=== PATIENT | female | born 1935 | race Caucasian/White ===

== ENCOUNTER 2016-12-01 01:57 | Inpatient (IN) | payer MEDICARE ==
[2016-12-01 02:39] LABS: ABSOLUTE BASOPHILS # (AUTO) 0.1 10^3/uL (0.0-0.2); ABSOLUTE EOSINOPHILS # (AUTO) 0.1 10^3/uL (0.0-0.6); ABSOLUTE LYMPHOCYTES (AUTO) 1.9 10^3/uL (0.5-4.7); ABSOLUTE MONOCYTES (AUTO) 1.1 10^3/uL (0.1-1.4); ABSOLUTE NEUT (AUTO) 9.1 10^3/uL (1.7-8.2); BASOPHILS % (AUTO) 0.4 % (0-2); EOSINOPHILS % (AUTO) 0.6 % (0-6); HEMATOCRIT 39.6 % (36.0-47.0); HEMOGLOBIN 12.9 g/dL (12.0-15.5); HGB HCT DIFFERENCE -0.9; LYMPHOCYTES % (AUTO) 15.5 % (13-45); MEAN CORPUSCULAR HGB CONC 32.5 g/dL (32.0-36.0); MEAN CORPUSCULAR VOLUME 83 fl (80-97); MONOCYTES % (AUTO) 9.1 % (3-13); RED BLOOD COUNT 4.76 10^6/uL (3.72-5.28); RED CELL DISTRIBUTION WIDTH 17.7 % (11.5-14.0); SEGMENTED NEUTROPHILS % (AUTO) 74.4 % (42-78); WHITE BLOOD COUNT 12.2 10^3/uL (4.0-10.5)
--- NOTE | 2016-12-01 02:57 | ER Document Report ---
ED General <LITO THOMAS - Last Filed: 12/01/16 07:33> - General TRAVEL OUTSIDE OF THE [place] IN LAST 30 DAYS: No <ELIAS FRANK - Last Filed: 12/02/16 02:14> - General Chief Complaint: Near Syncope Stated Complaint: DIZZY Notes: Patient is a 81-year-old female presents with complaint of slipping out of her chair and being poorly responsive. She was 87% on room air. They placed her on oxygen . After they placed oxygen on her she became more appropriate and no longer confused. She said she has felt a little unwell today. No vomiting. No pain. No other complaints this time. No focal weakness or numbness. She typically does not wear oxygen at home. She typically is not hypotensive. She denies any recent fevers. (ELIAS FRANK) - Related Data Allergies/Adverse Reactions: No Known Allergies Allergy (Verified 02/02/15 03:40) Home Medications: Current Home Medications Amitriptyline HCl [Elavil 25 mg Tablet] 25 mg PO BID 12/01/16 [History] Ammonium Lactate [Skin Treatment] 1 applic TP BID 12/01/16 [History] Aspirin [Aspirin 81 mg Chewable Tablet] 81 mg PO DAILY 12/01/16 [History] Furosemide [Lasix] 20 mg PO DAILY 12/01/16 [History] Glimepiride [Amaryl] 2 mg PO QAM 12/01/16 [History] Iron,Carbonyl/Ascorbic Acid [Vitron-C Tablet] 1 tab PO DAILY 12/01/16 [History] Liraglutide [Victoza 2-Kevin] 1.8 ml INJ DAILY 12/01/16 [History] Morphine Sulfate [Morphine Ir 15 Mg Tablet] 15 mg PO BIDP PRN 12/01/16 [History] Multivitamin [Multivitamins] 1 each PO DAILY 12/01/16 [History] Pantoprazole Sodium [Protonix] 40 mg PO DAILY 12/01/16 [History] Pentosan Polysulfate Sodium [Elmiron 100 Mg Capsule] 100 mg PO BID 12/01/16 [ History] Rosuvastatin Calcium [Crestor] 40 mg PO DAILY 12/01/16 [History] Ubidecarenone/Vit E Acetate [Co Q-10 100 mg Softgel] 1 each PO DAILY 12/01/16 [ History] Past Medical History - Social History Smoking Status: Unknown if Ever Smoked Frequency of alcohol use: None Drug Abuse: None Family History: Reviewed & Not Pertinent, Hypertension - Past Medical History Cardiac Medical History: Reports: Hx Hypercholesterolemia, Hx Hypertension Denies: Hx Congestive Heart Failure, Hx Coronary Artery Disease Pulmonary Medical History: Denies: Hx Tuberculosis Endocrine Medical History: Reports: Hx Diabetes Mellitus Type 2 GI Medical History: Reports: Hx Diverticulitis, Hx Gastroesophageal Reflux Disease, Hx Ulcer Musculoskeltal Medical History: Reports Hx Muscle Weakness Psychiatric Medical History: Reports: Hx Depression Past Surgical History: Reports: Hx Appendectomy, Hx Carotid Endarterectomy, Hx Cholecystectomy, Hx Hysterectomy, Hx Tonsillectomy - Immunizations Hx Diphtheria, Pertussis, Tetanus Vaccination: Yes Hx Pneumococcal Vaccination: 06/27/14 <ELIAS FRANK - Last Filed: 12/02/16 02:14> Review of Systems <LITO THOMAS - Last Filed: 12/01/16 07:33> <ELIAS FRANK - Last Filed: 12/02/16 02:14> - Review of Systems Notes: My Normal Review Basic REVIEW OF SYSTEMS: CONSTITUTIONAL : Denies fever, chills, or sweats. Denies recent illness. EENT: Denies eye, ear, throat, or mouth pain or symptoms. Denies nasal or sinus congestion. CARDIOVASCULAR: Denies chest pain. RESPIRATORY: No shortness of breath or difficulty breathing. GASTROINTESTINAL: Denies abdominal pain. Denies nausea, vomiting, or diarrhea. Denies constipation. Last BM: GENITOURINARY: Denies difficulty urinating, painful urination, burning, frequency, or blood in urine. FEMALE GENITOURINARY: Denies vaginal bleeding, abnormal or irregular periods. LMP: MUSCULOSKELETAL: Denies neck or back pain or joint pain or swelling. SKIN: Denies rash or skin lesions. NEUROLOGICAL: Syncope. Denies headache. Denies weakness or paralysis or loss of use of either side. Denies problems with gait or speech. Denies sensory or motor loss. ALL OTHER SYSTEMS REVIEWED AND NEGATIVE. (ELIAS FRANK) Physical Exam <LITO THOMAS - Last Filed: 12/01/16 07:33> <ELIAS FRANK - Last Filed: 12/02/16 02:14> - Vital signs Vitals: Resp Pulse Ox 18 96 12/01/16 02:06 12/01/16 02:06 (LITO THOMAS) (ELIAS FRANK) - Notes Notes: General Appearance: Well nourished, alert, cooperative, no acute distress, no obvious discomfort. Well-appearing. Vitals: reviewed, See vital signs table. Head: no swelling or tenderness to the head Eyes: PERRL, EOMI, Conjuctiva clear Mouth: No decreasd moisture Throat: No tonsillar inflammation, No airway obstruction, No lymphadenopathy Neck: Supple, no neck tenderness, No thyromegaly Lungs: No wheezing, No rales, No rhonci, No accessory muscle use, good air exchange bilaterally. Heart: Normal rate, Regular rythm, No murmur, no rub Abdomen: Normal BS, soft, No rigidity, No abdominal tenderness, No guarding, no rebound, no abdominal masses, no organomegaly Extremities: strength 5/5 in all extremities, good pulses in all extremities, no swelling or tenderness in the extremities, no edema. Skin: warm, dry, appropriate color, no rash Neuro: speech clear, oriented x 3, normal affect, responds appropriately to questions. Cranial nerves II through XII are intact. Distal sensation intact. Patient moves all extremities without difficulty. (ELIAS FRANK) Course - Laboratory Result Diagrams: 12/01/16 02:26 12/01/16 02:50 <LITO THOMAS - Last Filed: 12/01/16 07:33> - Laboratory Result Diagrams: 12/01/16 02:26 12/01/16 02:50 <ELIAS FRANK - Last Filed: 12/02/16 02:14> - Vital Signs Vital signs: Temp Pulse Resp BP Pulse Ox 97.9 F 114 H 17 91/73 L 97 12/01/16 17:00 12/01/16 02:37 12/02/16 01:01 12/02/16 01:01 12/02/16 01:01 (LITO THOMAS) (ELIAS FRANK) - Laboratory Laboratory results interpreted by me: 12/01/16 12/01/16 12/01/16 02:26 02:50 02:50 WBC 12.2 H RDW 17.7 H Absolute Neutrophils 9.1 H Sodium 136.0 L Potassium 3.2 L Chloride 95 L Carbon Dioxide 32 H BUN 22 H Creatinine 1.42 H Est GFR ( Amer) 43 L Est GFR (Non-Af Amer) 36 L Glucose 126 H AST 193 H ALT 122 H Creatine Kinase 7026 H CK-MB (CK-2) 55.20 H Albumin 3.2 L Urine Protein Urine Glucose (UA) Urine Blood Ur Leukocyte Esterase 12/01/16 03:33 WBC RDW Absolute Neutrophils Sodium Potassium Chloride Carbon Dioxide BUN Creatinine Est GFR ( Amer) Est GFR (Non-Af Amer) Glucose AST ALT Creatine Kinase CK-MB (CK-2) Albumin Urine Protein 100 H Urine Glucose (UA) 50 H Urine Blood LARGE H Ur Leukocyte Esterase MODERATE H (LITO THOMAS) - EKG Interpretation by Me Additional EKG results interpreted by me: 12/01/16 02:56 EKG is reviewed and interpreted by me. EKG shows sinus tachycardia with a rate of [address] segment elevation or depression. No ischemic T wave inversions. WV interval, QRS duration, QTC intervals are within normal range. Old EKG for comparison is from 02/02/2015. (ELIAS FRANK) - Transfer of Care Notes: 12/02/16 02:13 Patient came in hypotensive which I think is most likely why she continued to pass out. It could be related to her pain medicine; however, she says that she takes her normal amount pain medicine. No recent changes in the dosage. She does have your tract infection. We'll treat her for this. Even though she is hypotensive her mean arterial pressure was staying above 65 after fluid boluses. I do not think she needs pressors. Patient will be admitted for further treatment. Dictation of this chart was performed using voice recognition software; therefore, there may be some unintended grammatical errors. (ELIAS FRANK) Discharge - Discharge Admitting Provider: Hospitalist Unit Admitted: Telemetry <LITO THOMAS - Last Filed: 12/01/16 07:33> <ELIAS FRANK - Last Filed: 12/02/16 02:14> - Discharge Clinical Impression: Hypotension Qualifiers: Hypotension type: unspecified hypotension type Qualified Code(s): I95.9 - Hypotension, unspecified UTI (urinary tract infection) Qualifiers: Urinary tract infection type: acute cystitis Hematuria presence: without hematuria Qualified Code(s): N30.00 - Acute cystitis without hematuria Condition: Stable Disposition: ADMITTED OBSERVATION
[2016-12-01] MEDS ORDERED: NORMAL SALINE 1000 ML 1,000 ML IV ONE ×2 (03:04→04:02)
[2016-12-01 03:16] LABS: ALANINE AMINOTRANSFERASE 122 U/L (9-52); ALBUMIN 3.2 g/dL (3.5-5.0); ALKALINE PHOSPHATASE 87 U/L (38-126); ANION GAP 9 (5-19); ASPARTATE AMINO TRANSFERASE 193 U/L (14-36); BILIRUBIN,TOTAL 0.7 mg/dL (0.2-1.3); BLOOD UREA NITROGEN 22 mg/dL (7-20); CARBON DIOXIDE 32 mmol/L (22-30); CHLORIDE 95 mmol/L (98-107); CREATININE RESULT 1.42 mg/dL (0.52-1.25); GLUCOSE 126 mg/dL (75-110); POTASSIUM 3.2 mmol/L (3.6-5.0); TOTAL PROTEIN 6.7 g/dL (6.3-8.2)
[2016-12-01 03:28] LABS: CREATINE KINASE MB 55.2 ng/mL (<4.55); TROPONIN I 0.015 ng/mL
[2016-12-01 03:32] LABS: CREATINE KINASE 7026 U/L (30-135)
[2016-12-01 04:17] LABS: APPEARANCE,URINE SLIGHTLY-CLOUDY; BILIRUBIN,URINE NEGATIVE (NEGATIVE); GLUCOSE, URINE 50 mg/dL (NEGATIVE); KETONES,URINE NEGATIVE (NEGATIVE); LEUKOCYTE ESTERASE,URINE MODERATE (NEGATIVE); NITRITE,URINE NEGATIVE (NEGATIVE); PROTEIN,URINE 100 mg/dL (NEGATIVE); URINE SPECIFIC GRAVITY 1.008; UROBILINOGEN,URINE NEGATIVE mg/dL (<2.0)
[2016-12-01] MEDS ORDERED: CIPROFLOXACIN 400 MG/D5W RTU 200 ML IV ONE (04:28)
[2016-12-01] MEDS ORDERED: MORPHINE SULFATE IR 15 MG TABLET PO PRN (08:17)
[2016-12-01] MEDS ORDERED: ACETAMINOPHEN 325 MG TABLET PO PRN (08:20)
[2016-12-01] MEDS ORDERED: NORMAL SALINE 1000 ML 1,000 ML IV PRN (08:20)
[2016-12-01] MEDS ORDERED: ONDANSETRON HCL INJ/PF 4 MG/2 ML SDV IV PRN (08:28)
[2016-12-01] MEDS ORDERED: AZTREONAM INJ 1 GM VIAL IV SCH (08:30)
--- NOTE | 2016-12-01 08:30 | EKG REPORT ---
SEVERITY:- ABNORMAL ECG - SINUS TACHYCARDIA WITH FIRST DEGREE AVB. INFERIOR INFARCT, AGE INDETERMINATE : Confirmed by: Nelson Bullock MD 01-Dec-2016 08:29:57
[2016-12-01] MEDS ORDERED: DEXTROSE 50%-WATER 25 GM/50 ML DISP.SYRIN IV PRN ×2 (08:31)
[2016-12-01] MEDS ORDERED: GLUCAGON,HUMAN RECOMB 1 MG INJ IM PRN (08:31)
[2016-12-01] MEDS ORDERED: DEXTROSE 40% GEL 15 GM TUBE PO PRN ×2 (08:31)
--- NOTE | 2016-12-01 08:45 | PDOC H&P ---
History of Present Illness Admission Date/PCP: 12/01/16 08:03 Patient complains of: Confusion and low blood pressure History of Present Illness: NEENA SANTANA is a 81 year old female, with history of hypertension and chronic back pain on chronic opiate use, as well as on diuretics presents to the hospital because of confusion. Patient does not remember what happened. She reported that she fell twice 2 days ago. She doesn't feel well overall in general. She has underlying baseline dementia and a very poor historian. She was brought to the hospital as she was falling out of the chair, the ambulance was called, she was found to be hypoxic with O2 saturation in the 80s, patient was placed on oxygen and was brought to the emergency room. CT of the abdomen and pelvis did not reveal any acute abnormality but large hiatal hernia. CTA of the chest did not reveal an infiltrate or pulmonary embolism. She was noted to be hypotensive with a blood pressure systolic in the 60s to 80s. 2 L of normal saline bolus was given and intravenous antibiotics started for abnormal urinalysis suggestive of UTI. Patient was then referred for admission. Patient denies any dysuria urgency or frequency, chills or fever, chest congestion or sinus congestion, nor any sore throat, no diarrhea as well reported. Past Medical History Past Medical History: Medication reconciliation pending verification from the patient's pharmacist. Cardiac Medical History: Reports: Hyperlipidema, Hypertension Denies: Congestive Heart Failure, Coronary Artery Disease Pulmonary Medical History: Denies: Tuberculosis Endocrine Medical History: Reports: Diabetes Mellitus Type 2 GI Medical History: Reports: Diverticulitis, Gastroesophageal Reflux Disease Psychiatric Medical History: Reports: Depression Past Surgical History Past Surgical History: Reports: Appendectomy, Carotid Endarterectomy, Cholecystectomy, Hysterectomy, Tonsillectomy Social History Information Source: Patient Smoking Status: Never Smoker Frequency of Alcohol Use: None Hx Recreational Drug Use: No Drugs: None Hx Prescription Drug Abuse: No Family History Family History: Hypertension Parental Family History Reviewed: Yes Children Family History Reviewed: Yes Sibling(s) Family History Reviewed.: Yes Medication/Allergy Home Medications: Amitriptyline HCl [Elavil 25 mg Tablet] 1 tab PO BID 02/02/15 Morphine Sulfate [Morphine Ir 15 mg Tablet] 1 tab PO TID PRN 02/02/15 Multivitamin [Multivitamins] 1 tab PO DAILY 02/02/15 Pantoprazole Sodium 2 tab PO BID 02/02/15 Pentosan Polysulfate Sodium [Elmiron 100 mg Capsule] 1 tab PO BID 02/02/15 Rosuvastatin Calcium [Crestor] 1 tab PO DAILY 02/02/15 Ubidecarenone/Vit E Acetate [Co Q-10 100 mg Softgel] 1 tab PO DAILY 02/02/15 Amitriptyline HCl [Amitriptyline HCl] 25 mg PO BID 12/01/16 Aspirin [Aspirin 81 mg Chewable Tablet] 81 mg PO DAILY 12/01/16 Clotrimazole/Betamethasone Dip [Clotrimazole-Betamethasone Crm] 15 gm TOP PRN PRN 12/01/16 Furosemide [Furosemide] 20 mg PO DAILY 12/01/16 Glimepiride [Glimepiride] 4 mg PO DAILY 12/01/16 Glipizide [Glipizide] 5 mg PO BID 12/01/16 Iron,Carbonyl/Ascorbic Acid [Vitron-C Tablet] 12/01/16 Liraglutide [Victoza 3-Kevin] 0.6 mg INJ DAILY 12/01/16 Morphine Sulfate [Morphine Ir 15 Mg Tablet] 15 mg PO DAILY 12/01/16 Pentosan Polysulfate Sodium [Elmiron 100 mg Capsule] 100 mg PO QID 12/01/16 Allergies/Adverse Reactions: No Known Allergies Allergy (Verified 02/02/15 03:40) Review of Systems Constitutional: PRESENT: weakness - Generalized. ABSENT: chills, fever(s), headache(s), weight gain, weight loss Eyes: ABSENT: visual disturbances Ears: ABSENT: hearing changes Nose, Mouth, and Throat: ABSENT: mouth pain, sore throat Cardiovascular: ABSENT: chest pain, dyspnea on exertion, edema, orthropnea, palpitations Respiratory: ABSENT: cough, dyspnea, hemoptysis, sputum Gastrointestinal: ABSENT: abdominal pain, constipation, diarrhea, hematemesis, hematochezia, nausea, vomiting Genitourinary: ABSENT: dysuria, hematuria Musculoskeletal: ABSENT: joint swelling Integumentary: ABSENT: rash, wounds Neurological: PRESENT: confusion, dizziness, other - Lightheadedness. ABSENT: abnormal gait, abnormal speech, focal weakness, syncope Psychiatric: ABSENT: anxiety, depression, homidical ideation, suicidal ideation Endocrine: ABSENT: cold intolerance, heat intolerance, polydipsia, polyuria Hematologic/Lymphatic: ABSENT: easy bleeding, easy bruising Physical Exam Vital Signs: Temp Pulse Resp BP Pulse Ox 98.5 F 114 H 16 98/69 L 94 12/01/16 02:37 12/01/16 02:37 12/01/16 07:20 12/01/16 07:20 12/01/16 07:20 General appearance: PRESENT: no acute distress, cooperative, obese Head exam: PRESENT: atraumatic, normocephalic Eye exam: PRESENT: conjunctiva pink, EOMI, PERRLA - Sluggish. ABSENT: scleral icterus Ear exam: PRESENT: normal external ear exam Mouth exam: PRESENT: dry mucosa, neck supple, tongue midline Throat exam: ABSENT: post pharyngeal erythema, tonsillar erythema, tonsillar exudate Neck exam: ABSENT: carotid bruit, JVD, lymphadenopathy, thyromegaly Respiratory exam: PRESENT: clear to auscultation marcella, other - Bowel sounds no noted on the chest. ABSENT: rales, rhonchi, wheezes Cardiovascular exam: PRESENT: RRR. ABSENT: diastolic murmur, rubs, systolic murmur Pulses: PRESENT: normal dorsalis pedis pul Vascular exam: PRESENT: normal capillary refill GI/Abdominal exam: PRESENT: normal bowel sounds, soft, other - Mild CVA tenderness on the left. ABSENT: distended, guarding, mass, organolmegaly, rebound, tenderness Rectal exam: PRESENT: deferred Extremities exam: PRESENT: full ROM. ABSENT: calf tenderness, clubbing, pedal edema Neurological exam: PRESENT: alert, awake, other - Appropriately respond to questions Psychiatric exam: PRESENT: appropriate affect, normal mood. ABSENT: agitated, homicidal ideation, suicidal ideation Skin exam: PRESENT: dry, intact, warm. ABSENT: cyanosis, rash Results Impressions: Chest X-Ray 12/01/16 03:04 IMPRESSION: NO ACUTE CARDIOPULMONARY PROCESS. NO SIGNIFICANT CHANGE FROM PRIOR STUDY. Abdomen/Pelvis CT 12/01/16 05:15 IMPRESSION: 1. CHRONIC ATROPHY OF THE RIGHT KIDNEY. 2. LARGE HIATAL HERNIA WITH INTRATHORACIC STOMACH. 3. 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 4. THE ABOVE FINDINGS ARE STABLE COMPARED TO THE PRIOR STUDY. NO ACUTE FINDINGS. Chest/Abdomen CTA 12/01/16 05:15 IMPRESSION: NORMAL CTA OF THE CHEST. NO PULMONARY EMBOLI. LARGE HIATAL HERNIA WITH INTRATHORACIC STOMACH. Assessment & Plan - Diagnosis (1) Sepsis Qualifiers: Sepsis type: sepsis due to unspecified organism Qualified Code(s): A41.9 - Sepsis, unspecified organism Is this a current diagnosis for this admission?: Yes (2) UTI (urinary tract infection) Qualifiers: Urinary tract infection type: acute cystitis Hematuria presence: without hematuria Qualified Code(s): N30.00 - Acute cystitis without hematuria Is this a current diagnosis for this admission?: Yes (3) Hypotension Qualifiers: Hypotension type: unspecified hypotension type Qualified Code(s): I95.9 - Hypotension, unspecified Is this a current diagnosis for this admission?: Yes (4) Hypokalemia Is this a current diagnosis for this admission?: Yes (5) Hiatal hernia Is this a current diagnosis for this admission?: Yes (6) Abnormal liver function test Is this a current diagnosis for this admission?: Yes (7) Diabetes mellitus Qualifiers: Diabetes mellitus type: type 2 Diabetes mellitus complication status: with unspecified complications Diabetes mellitus termite exterminator helper insulin use: without termite exterminator helper use Qualified Code(s): E11.8 - Type 2 diabetes mellitus with unspecified complications Is this a current diagnosis for this admission?: Yes (8) Hypertension Qualifiers: Hypertension type: essential hypertension Qualified Code(s): I10 - Essential (primary) hypertension Is this a current diagnosis for this admission?: Yes (9) Hyperlipidemia Qualifiers: Hyperlipidemia type: unspecified Qualified Code(s): E78.5 - Hyperlipidemia, unspecified Is this a current diagnosis for this admission?: Yes (10) Chronic back pain Qualifiers: Back pain location: back pain in unspecified location Back pain laterality: unspecified Qualified Code(s): M54.9 - Dorsalgia, unspecified ; G89.29 - Other chronic pain Is this a current diagnosis for this admission?: Yes (11) Chronically on opiate therapy Is this a current diagnosis for this admission?: Yes (12) Dementia Qualifiers: Dementia type: unspecified type Dementia behavioral disturbance: without behavioral disturbance Qualified Code(s): F03.90 - Unspecified dementia without behavioral disturbance Is this a current diagnosis for this admission?: Yes (13) Anemia of chronic disease Is this a current diagnosis for this admission?: Yes - Time Time Spent: 50 to 70 Minutes - Inpatient Certification Based on my medical assessment, after consideration of the patient's comorbidities, presenting symptoms, or acuity I expect that the services needed warrant INPATIENT care.: Yes I certify that my determination is in accordance with my understanding of Medicare's requirements for reasonable and necessary INPATIENT services [42 CFR 412.3e].: Yes Medical Necessity: Significant Comorbidiites Make Outpatient Treatment Too Risky , Need Close Monitoring Due to Risk of Patient Decompensation, Need For IV Fluids, Need for IV Antibiotics Post Hospital Care: D/C Field Service Representative Documentation - Plan Summary Plan Summary: The patient will be admitted to [facility]. Blood pressure has improved since bolus of intravenous fluid. We will continue normal saline IV fluid. Cultures of the blood and urine will be sent. I will begin the patient on intravenous Azactam. I will hold the patient's antihypertensive medications. We will monitor liver function test and discontinue the patient's cholesterol medication. We will replace potassium and monitor electrolytes. We are going to put the patient on sliding scale insulin. DVT prophylaxis with Lovenox will be placed. Patient's hypoxia likely related to large intrathoracic hiatal hernia. We will check a KUB for possible fecal impaction in 3-4 daily. Further testing depends on the initial evaluation and response to treatment as outlined above.
[2016-12-01] MEDS: DOCUSATE SODIUM 100 MG CAPSULE PO SCH ×2 (09:20→17:57)
[2016-12-01] MEDS: AMITRIPTYLINE HCL 25 MG TABLET PO SCH ×2 (09:20→17:57)
[2016-12-01] MEDS: POTASSI CL 20 MEQ/50 ML RIDER 20 MEQ/50 ML RTUPB IV SCH ×2 (09:26→12:52)
[2016-12-01] MEDS: ASPIRIN 81 MG TABLET, CHEWABLE PO SCH (09:34)
[2016-12-01] MEDS ORDERED: PANTOPRAZOLE SODIUM PO SCH (10:00)
[2016-12-01] MEDS ORDERED: GLIPIZIDE 5 MG TABLET PO SCH (10:00)
[2016-12-01] MEDS ORDERED: ENOXAPARIN SODIUM INJ 40 MG/0.4 ML DISP.SYRIN SUBCUT ONE (10:00)
[2016-12-01] MEDS: GLIPIZIDE 5 MG TABLET PO SCH ×2 (11:04→16:01)
[2016-12-01] MEDS: AZTREONAM 1 GM in DEXTROSE 5%-WATER 50 ML IV SCH ×2 (11:04→17:57)
[2016-12-01] MEDS: LANSOPRAZOLE 30 MG TAB.RAP.DR PO SCH (17:57)
[2016-12-02] MEDS ORDERED: AZTREONAM INJ 1 GM VIAL ONE (03:48)
[2016-12-02 04:52] LABS: ABSOLUTE EOSINOPHILS # (AUTO) 0.1 10^3/uL (0.0-0.6); ABSOLUTE LYMPHOCYTES (AUTO) 1.7 10^3/uL (0.5-4.7); ABSOLUTE MONOCYTES (AUTO) 0.9 10^3/uL (0.1-1.4); ABSOLUTE NEUT (AUTO) 5.2 10^3/uL (1.7-8.2); BASOPHILS % (AUTO) 0.4 % (0-2); HEMATOCRIT 36.4 % (36.0-47.0); HEMOGLOBIN 11.7 g/dL (12.0-15.5); HGB HCT DIFFERENCE -1.3; LYMPHOCYTES % (AUTO) 21.6 % (13-45); MEAN CORPUSCULAR HGB CONC 32.1 g/dL (32.0-36.0); MEAN CORPUSCULAR VOLUME 84 fl (80-97); RED BLOOD COUNT 4.34 10^6/uL (3.72-5.28); RED CELL DISTRIBUTION WIDTH 17.7 % (11.5-14.0); WHITE BLOOD COUNT 7.9 10^3/uL (4.0-10.5)
[2016-12-02] MEDS ORDERED: AZTREONAM 1 GM in DEXTROSE 5%-WATER 50 ML IV SCH (05:00)
[2016-12-02 05:15] LABS: ALANINE AMINOTRANSFERASE 107 U/L (9-52); ALBUMIN 2.6 g/dL (3.5-5.0); ALKALINE PHOSPHATASE 69 U/L (38-126); ANION GAP 5 (5-19); ASPARTATE AMINO TRANSFERASE 129 U/L (14-36); BILIRUBIN,TOTAL 0.4 mg/dL (0.2-1.3); BLOOD UREA NITROGEN 17 mg/dL (7-20); CARBON DIOXIDE 30 mmol/L (22-30); CHLORIDE 103 mmol/L (98-107); CREATININE RESULT 1.29 mg/dL (0.52-1.25); GLUCOSE 136 mg/dL (75-110); POTASSIUM 4.6 mmol/L (3.6-5.0); SODIUM 137.8 mmol/L (137-145); TOTAL PROTEIN 5.9 g/dL (6.3-8.2)
[2016-12-02] MEDS: LANSOPRAZOLE 30 MG TAB.RAP.DR PO SCH ×2 (05:16→17:18)
[2016-12-02] MEDS: ENOXAPARIN SODIUM INJ 40 MG/0.4 ML DISP.SYRIN SUBCUT SCH (08:09)
[2016-12-02] MEDS: DOCUSATE SODIUM 100 MG CAPSULE PO SCH ×2 (10:05→17:18)
[2016-12-02] MEDS: AMITRIPTYLINE HCL 25 MG TABLET PO SCH ×2 (10:05→17:18)
[2016-12-02] MEDS: ASPIRIN 81 MG TABLET, CHEWABLE PO SCH (10:05)
[2016-12-02] MEDS: GLIPIZIDE 5 MG TABLET PO SCH ×2 (11:07→17:19)
--- NOTE | 2016-12-02 11:08 | PDOC PROGRESS REPORT ---
Subjective Progress Note for:: 12/02/16 Subjective:: Patient is feeling better. Still feels weak but improved. No shortness of breath or chest congestion. No cough or chest pain. No paroxysmal nocturnal dyspnea or orthopnea. No diarrhea nausea or vomiting. Physical Exam Vital Signs: Temp Pulse Resp BP Pulse Ox 97.8 F 105 H 18 100/64 99 12/02/16 04:00 12/02/16 07:53 12/02/16 04:00 12/02/16 04:00 12/02/16 04:00 Intake & Output 12/01/16 12/02/16 12/03/16 06:59 06:59 06:59 Intake Total 1027 Output Total 800 Balance 227 Weight 90.2 kg General appearance: PRESENT: no acute distress, cooperative, obese Head exam: PRESENT: normocephalic Eye exam: PRESENT: EOMI Mouth exam: PRESENT: moist, neck supple Neck exam: ABSENT: JVD Respiratory exam: PRESENT: clear to auscultation marcella. ABSENT: rhonchi, wheezes Cardiovascular exam: PRESENT: RRR. ABSENT: gallop GI/Abdominal exam: PRESENT: soft. ABSENT: distended, tenderness Extremities exam: ABSENT: pedal edema Neurological exam: PRESENT: alert, awake, oriented to situation Skin exam: PRESENT: dry, warm. ABSENT: cyanosis Results Laboratory Results: 12/02/16 04:13 12/02/16 04:13 12/02/16 12/02/16 04:13 04:13 WBC 7.9 RBC 4.34 Hgb 11.7 L Hct 36.4 MCV 84 MCH 27.0 MCHC 32.1 RDW 17.7 H Plt Count 239 Seg Neutrophils % 66.0 Lymphocytes % 21.6 Monocytes % 11.0 Eosinophils % 1.0 Basophils % 0.4 Absolute Neutrophils 5.2 Absolute Lymphocytes 1.7 Absolute Monocytes 0.9 Absolute Eosinophils 0.1 Absolute Basophils 0.0 Sodium 137.8 Potassium 4.6 Chloride 103 Carbon Dioxide 30 Anion Gap 5 BUN 17 Creatinine 1.29 H Est GFR ( Amer) 48 L Est GFR (Non-Af Amer) 40 L Glucose 136 H Calcium 9.0 Total Bilirubin 0.4 AST 129 H ALT 107 H Alkaline Phosphatase 69 Total Protein 5.9 L Albumin 2.6 L Impressions: KUB X-Ray 12/01/16 00:00 IMPRESSION: NO RADIOGRAPHIC EVIDENCE FOR ACUTE ABDOMINAL DISEASE. LARGE AMOUNT OF STOOL CONSISTENT WITH CONSTIPATION. Chest X-Ray 12/01/16 03:04 IMPRESSION: NO ACUTE CARDIOPULMONARY PROCESS. NO SIGNIFICANT CHANGE FROM PRIOR STUDY. Abdomen/Pelvis CT 12/01/16 05:15 IMPRESSION: 1. CHRONIC ATROPHY OF THE RIGHT KIDNEY. 2. LARGE HIATAL HERNIA WITH INTRATHORACIC STOMACH. 3. 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 4. THE ABOVE FINDINGS ARE STABLE COMPARED TO THE PRIOR STUDY. NO ACUTE FINDINGS. Chest/Abdomen CTA 12/01/16 05:15 IMPRESSION: NORMAL CTA OF THE CHEST. NO PULMONARY EMBOLI. LARGE HIATAL HERNIA WITH INTRATHORACIC STOMACH. Assessment & Plan - Diagnosis (1) Sepsis Qualifiers: Sepsis type: sepsis due to unspecified organism Qualified Code(s): A41.9 - Sepsis, unspecified organism Is this a current diagnosis for this admission?: Yes (2) UTI (urinary tract infection) Qualifiers: Urinary tract infection type: acute cystitis Hematuria presence: without hematuria Qualified Code(s): N30.00 - Acute cystitis without hematuria Is this a current diagnosis for this admission?: Yes (3) Hypotension Qualifiers: Hypotension type: unspecified hypotension type Qualified Code(s): I95.9 - Hypotension, unspecified Is this a current diagnosis for this admission?: Yes (4) Hypokalemia Is this a current diagnosis for this admission?: Yes (5) Hiatal hernia Is this a current diagnosis for this admission?: Yes (6) Abnormal liver function test Is this a current diagnosis for this admission?: Yes (7) Diabetes mellitus Qualifiers: Diabetes mellitus type: type 2 Diabetes mellitus complication status: with unspecified complications Diabetes mellitus [facility] insulin use: without terminal operations manager use Qualified Code(s): E11.8 - Type 2 diabetes mellitus with unspecified complications; Z79.4 - exterminator helper (current) use of insulin Is this a current diagnosis for this admission?: Yes (8) Hypertension Qualifiers: Hypertension type: essential hypertension Qualified Code(s): I10 - Essential (primary) hypertension Is this a current diagnosis for this admission?: Yes (9) Hyperlipidemia Qualifiers: Hyperlipidemia type: unspecified Qualified Code(s): E78.5 - Hyperlipidemia, unspecified Is this a current diagnosis for this admission?: Yes (10) Chronic back pain Qualifiers: Back pain location: back pain in unspecified location Back pain laterality: unspecified Qualified Code(s): M54.9 - Dorsalgia, unspecified ; G89.29 - Other chronic pain Is this a current diagnosis for this admission?: Yes (11) Chronically on opiate therapy Is this a current diagnosis for this admission?: Yes (12) Dementia Qualifiers: Dementia type: unspecified type Dementia behavioral disturbance: without behavioral disturbance Qualified Code(s): F03.90 - Unspecified dementia without behavioral disturbance Is this a current diagnosis for this admission?: Yes (13) Anemia of chronic disease Is this a current diagnosis for this admission?: Yes - Time Time Spent with patient: 25-34 minutes - Plan Summary Plan Summary: Continue current antibiotic. Follow cultures. Decrease intravenous fluids. Increase activity . Begin physical therapy. Continue supportive care.
[2016-12-02] MEDS: NORMAL SALINE 1000 ML 1,000 ML IV PRN ×2 (11:55→23:16)
[2016-12-02] MEDS: INSULIN REG, HUMAN 100 UNIT/ML 3 ML VIAL (PYX) SUBCUT PRN ×2 (11:59→23:15)
[2016-12-02] MEDS: AZTREONAM 1 GM in DEXTROSE 5%-WATER 50 ML IV SCH ×2 (15:10→21:08)
[2016-12-03 05:03] LABS: ALANINE AMINOTRANSFERASE 120 U/L (9-52); ALBUMIN 3.2 g/dL (3.5-5.0); ALKALINE PHOSPHATASE 73 U/L (38-126); ANION GAP 8 (5-19); ASPARTATE AMINO TRANSFERASE 154 U/L (14-36); BILIRUBIN,TOTAL 0.5 mg/dL (0.2-1.3); BLOOD UREA NITROGEN 14 mg/dL (7-20); CALCIUM 8.9 mg/dL (8.4-10.2); CARBON DIOXIDE 27 mmol/L (22-30); CHLORIDE 105 mmol/L (98-107); CREATININE RESULT 0.91 mg/dL (0.52-1.25); GLUCOSE 143 mg/dL (75-110); SODIUM 139.9 mmol/L (137-145); TOTAL PROTEIN 6.1 g/dL (6.3-8.2)
[2016-12-03 05:14] LABS: POTASSIUM 3.5 mmol/L (3.6-5.0)
[2016-12-03] MEDS: LANSOPRAZOLE 30 MG TAB.RAP.DR PO SCH ×2 (05:34→17:37)
[2016-12-03] MEDS: AZTREONAM 1 GM in DEXTROSE 5%-WATER 50 ML IV SCH ×3 (05:34→21:42)
[2016-12-03] MEDS: ENOXAPARIN SODIUM INJ 40 MG/0.4 ML DISP.SYRIN SUBCUT SCH (10:14)
[2016-12-03] MEDS: GLIPIZIDE 5 MG TABLET PO SCH ×2 (10:15→15:26)
[2016-12-03] MEDS: ASPIRIN 81 MG TABLET, CHEWABLE PO SCH (10:16)
[2016-12-03] MEDS: DOCUSATE SODIUM 100 MG CAPSULE PO SCH ×2 (10:16→17:36)
[2016-12-03] MEDS: AMITRIPTYLINE HCL 25 MG TABLET PO SCH ×2 (10:16→17:37)
[2016-12-03] MEDS: INSULIN REG, HUMAN 100 UNIT/ML 3 ML VIAL (PYX) SUBCUT PRN ×2 (12:03→21:48)
--- NOTE | 2016-12-03 13:53 | PDOC PROGRESS REPORT ---
Subjective Progress Note for:: 12/03/16 Subjective:: Patient is doing much better. No PND or orthopnea or shortness of breath. No coughing at all. No dizziness or lightheadedness. No diarrhea. No nausea vomiting or abdominal pain. Patient able to ambulate. Physical Exam Vital Signs: Temp Pulse Resp BP Pulse Ox 98.6 F 107 H 18 122/86 H 96 12/03/16 11:17 12/03/16 11:17 12/03/16 11:17 12/03/16 11:17 12/03/16 11:17 Intake & Output 12/02/16 12/03/16 12/04/16 06:59 06:59 06:59 Intake Total 1027 3086 Output Total 800 Balance 227 3086 Weight 90.2 kg 91.8 kg General appearance: PRESENT: no acute distress, cooperative Head exam: PRESENT: normocephalic Eye exam: PRESENT: EOMI Mouth exam: PRESENT: moist, neck supple Neck exam: ABSENT: JVD Respiratory exam: PRESENT: clear to auscultation marcella. ABSENT: rhonchi, wheezes Cardiovascular exam: PRESENT: RRR. ABSENT: gallop GI/Abdominal exam: PRESENT: normal bowel sounds, soft. ABSENT: distended, tenderness Extremities exam: PRESENT: other - Trace edema Neurological exam: PRESENT: alert, awake, oriented to person, oriented to place , oriented to time, oriented to situation Skin exam: PRESENT: dry, warm. ABSENT: cyanosis Results Laboratory Results: 12/02/16 04:13 12/03/16 03:41 12/03/16 03:41 Sodium 139.9 Potassium 3.5 L D Chloride 105 Carbon Dioxide 27 Anion Gap 8 BUN 14 Creatinine 0.91 Est GFR ( Amer) > 60 Est GFR (Non-Af Amer) > 60 Glucose 143 H Calcium 8.9 Total Bilirubin 0.5 AST 154 H ALT 120 H Alkaline Phosphatase 73 Total Protein 6.1 L Albumin 3.2 L Impressions: KUB X-Ray 12/01/16 00:00 IMPRESSION: NO RADIOGRAPHIC EVIDENCE FOR ACUTE ABDOMINAL DISEASE. LARGE AMOUNT OF STOOL CONSISTENT WITH CONSTIPATION. Chest X-Ray 12/01/16 03:04 IMPRESSION: NO ACUTE CARDIOPULMONARY PROCESS. NO SIGNIFICANT CHANGE FROM PRIOR STUDY. Abdomen/Pelvis CT 12/01/16 05:15 IMPRESSION: 1. CHRONIC ATROPHY OF THE RIGHT KIDNEY. 2. LARGE HIATAL HERNIA WITH INTRATHORACIC STOMACH. 3. 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 4. THE ABOVE FINDINGS ARE STABLE COMPARED TO THE PRIOR STUDY. NO ACUTE FINDINGS. Chest/Abdomen CTA 12/01/16 05:15 IMPRESSION: NORMAL CTA OF THE CHEST. NO PULMONARY EMBOLI. LARGE HIATAL HERNIA WITH INTRATHORACIC STOMACH. Assessment & Plan - Diagnosis (1) Sepsis Qualifiers: Sepsis type: sepsis due to unspecified organism Qualified Code(s): A41.9 - Sepsis, unspecified organism Is this a current diagnosis for this admission?: Yes (2) UTI (urinary tract infection) Qualifiers: Urinary tract infection type: acute cystitis Hematuria presence: without hematuria Qualified Code(s): N30.00 - Acute cystitis without hematuria Is this a current diagnosis for this admission?: Yes (3) Hypotension Qualifiers: Hypotension type: unspecified hypotension type Qualified Code(s): I95.9 - Hypotension, unspecified Is this a current diagnosis for this admission?: Yes (4) Hypokalemia Is this a current diagnosis for this admission?: Yes (5) Hiatal hernia Is this a current diagnosis for this admission?: Yes (6) Abnormal liver function test Is this a current diagnosis for this admission?: Yes (7) Diabetes mellitus Qualifiers: Diabetes mellitus type: type 2 Diabetes mellitus complication status: with unspecified complications Diabetes mellitus extermination inspector insulin use: without extermination inspector use Qualified Code(s): E11.8 - Type 2 diabetes mellitus with unspecified complications; Z79.4 - care home (current) use of insulin Is this a current diagnosis for this admission?: Yes (8) Hypertension Qualifiers: Hypertension type: essential hypertension Qualified Code(s): I10 - Essential (primary) hypertension Is this a current diagnosis for this admission?: Yes (9) Hyperlipidemia Qualifiers: Hyperlipidemia type: unspecified Qualified Code(s): E78.5 - Hyperlipidemia, unspecified Is this a current diagnosis for this admission?: Yes (10) Chronic back pain Qualifiers: Back pain location: back pain in unspecified location Back pain laterality: unspecified Qualified Code(s): M54.9 - Dorsalgia, unspecified ; G89.29 - Other chronic pain Is this a current diagnosis for this admission?: Yes (11) Chronically on opiate therapy Is this a current diagnosis for this admission?: Yes (12) Dementia Qualifiers: Dementia type: unspecified type Dementia behavioral disturbance: without behavioral disturbance Qualified Code(s): F03.90 - Unspecified dementia without behavioral disturbance Is this a current diagnosis for this admission?: Yes (13) Anemia of chronic disease Is this a current diagnosis for this admission?: Yes - Time Time Spent with patient: 25-34 minutes - Plan Summary Plan Summary: We will discontinue intravenous fluids. We will correct potassium and recheck electrolytes in the morning. Continue physical therapy consult corporate planner for subacute rehabilitation. Patient considering but not sure. We will continue to monitor. Continue antibiotics and follow cultures.
[2016-12-03] MEDS ORDERED: POTASSIUM CHLORIDE 10 MEQ TABLET.SA PO ONE (14:30)
[2016-12-03 14:54] LABS: THYROID STIMULATING HORMONE 0.33 uIU/mL (0.47-4.68)
[2016-12-04 04:53] LABS: ALANINE AMINOTRANSFERASE 147 U/L (9-52); ALKALINE PHOSPHATASE 80 U/L (38-126); ANION GAP 10 (5-19); ASPARTATE AMINO TRANSFERASE 176 U/L (14-36); BILIRUBIN,TOTAL 0.6 mg/dL (0.2-1.3); BLOOD UREA NITROGEN 13 mg/dL (7-20); CALCIUM 9.3 mg/dL (8.4-10.2); CARBON DIOXIDE 24 mmol/L (22-30); CHLORIDE 105 mmol/L (98-107); CREATININE RESULT 1.02 mg/dL (0.52-1.25); GLUCOSE 152 mg/dL (75-110); POTASSIUM 3.7 mmol/L (3.6-5.0); TOTAL PROTEIN 6.4 g/dL (6.3-8.2)
[2016-12-04] MEDS: AZTREONAM 1 GM in DEXTROSE 5%-WATER 50 ML IV SCH (05:35)
[2016-12-04] MEDS: LANSOPRAZOLE 30 MG TAB.RAP.DR PO SCH ×2 (05:36→17:15)
[2016-12-04] MEDS: ASPIRIN 81 MG TABLET, CHEWABLE PO SCH (09:22)
[2016-12-04] MEDS: AMITRIPTYLINE HCL 25 MG TABLET PO SCH (09:22)
[2016-12-04] MEDS: ENOXAPARIN SODIUM INJ 40 MG/0.4 ML DISP.SYRIN SUBCUT SCH (09:23)
[2016-12-04] MEDS: DOCUSATE SODIUM 100 MG CAPSULE PO SCH ×2 (09:35→17:14)
[2016-12-04] MEDS ORDERED: NORMAL SALINE 1000 ML 1,000 ML IV PRN (11:09)
--- NOTE | 2016-12-04 11:12 | PDOC PROGRESS REPORT ---
Subjective Progress Note for:: 12/04/16 Subjective:: Patient is doing much better. No PND or orthopnea or shortness of breath. No coughing at all. No dizziness or lightheadedness. No nausea vomiting or abdominal pain. Patient able to ambulate. Has diarrhea however. Physical Exam Vital Signs: Temp Pulse Resp BP Pulse Ox 97.9 F 111 H 18 111/94 H 95 12/04/16 07:26 12/04/16 08:48 12/04/16 07:26 12/04/16 07:26 12/04/16 07:26 Intake & Output 12/03/16 12/04/16 12/05/16 06:59 06:59 06:59 Intake Total 3086 2076 Balance 3086 207 Weight 91.8 kg 87.6 kg General appearance: PRESENT: no acute distress, cooperative, obese Head exam: PRESENT: normocephalic Eye exam: PRESENT: EOMI Mouth exam: PRESENT: moist, neck supple Neck exam: ABSENT: JVD Respiratory exam: PRESENT: clear to auscultation marcella Cardiovascular exam: PRESENT: RRR. ABSENT: gallop GI/Abdominal exam: PRESENT: hyperactive bowel sounds, soft. ABSENT: distended, tenderness Extremities exam: PRESENT: other - trace pitting edema Neurological exam: PRESENT: alert, awake, oriented to situation Skin exam: PRESENT: dry, warm. ABSENT: cyanosis Results Laboratory Results: 12/02/16 04:13 12/04/16 03:31 12/03/16 12/04/16 03:41 03:31 Sodium 139.0 Potassium 3.7 Chloride 105 Carbon Dioxide 24 Anion Gap 10 BUN 13 Creatinine 1.02 Est GFR ( Amer) > 60 Est GFR (Non-Af Amer) 52 L Glucose 152 H Calcium 9.3 Total Bilirubin 0.6 AST 176 H ALT 147 H Alkaline Phosphatase 80 Total Protein 6.4 Albumin 3.0 L TSH 0.33 L Free T4 1.11 Impressions: KUB X-Ray 12/01/16 00:00 IMPRESSION: NO RADIOGRAPHIC EVIDENCE FOR ACUTE ABDOMINAL DISEASE. LARGE AMOUNT OF STOOL CONSISTENT WITH CONSTIPATION. Chest X-Ray 12/01/16 03:04 IMPRESSION: NO ACUTE CARDIOPULMONARY PROCESS. NO SIGNIFICANT CHANGE FROM PRIOR STUDY. Abdomen/Pelvis CT 12/01/16 05:15 IMPRESSION: 1. CHRONIC ATROPHY OF THE RIGHT KIDNEY. 2. LARGE HIATAL HERNIA WITH INTRATHORACIC STOMACH. 3. 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 4. THE ABOVE FINDINGS ARE STABLE COMPARED TO THE PRIOR STUDY. NO ACUTE FINDINGS. Chest/Abdomen CTA 12/01/16 05:15 IMPRESSION: NORMAL CTA OF THE CHEST. NO PULMONARY EMBOLI. LARGE HIATAL HERNIA WITH INTRATHORACIC STOMACH. Assessment & Plan - Diagnosis (1) Sepsis Qualifiers: Sepsis type: sepsis due to unspecified organism Qualified Code(s): A41.9 - Sepsis, unspecified organism Is this a current diagnosis for this admission?: Yes (2) UTI (urinary tract infection) Qualifiers: Urinary tract infection type: acute cystitis Hematuria presence: without hematuria Qualified Code(s): N30.00 - Acute cystitis without hematuria Is this a current diagnosis for this admission?: Yes (3) Hypotension Qualifiers: Hypotension type: unspecified hypotension type Qualified Code(s): I95.9 - Hypotension, unspecified Is this a current diagnosis for this admission?: Yes (4) Hypokalemia Is this a current diagnosis for this admission?: Yes (5) Hiatal hernia Is this a current diagnosis for this admission?: Yes (6) Abnormal liver function test Is this a current diagnosis for this admission?: Yes (7) Diabetes mellitus Qualifiers: Diabetes mellitus type: type 2 Diabetes mellitus complication status: with unspecified complications Diabetes mellitus fdc insulin use: without fdc use Qualified Code(s): E11.8 - Type 2 diabetes mellitus with unspecified complications; Z79.4 - [facility] (current) use of insulin Is this a current diagnosis for this admission?: Yes (8) Hypertension Qualifiers: Hypertension type: essential hypertension Qualified Code(s): I10 - Essential (primary) hypertension Is this a current diagnosis for this admission?: Yes (9) Hyperlipidemia Qualifiers: Hyperlipidemia type: unspecified Qualified Code(s): E78.5 - Hyperlipidemia, unspecified Is this a current diagnosis for this admission?: Yes (10) Chronic back pain Qualifiers: Back pain location: back pain in unspecified location Back pain laterality: unspecified Qualified Code(s): M54.9 - Dorsalgia, unspecified ; G89.29 - Other chronic pain Is this a current diagnosis for this admission?: Yes (11) Chronically on opiate therapy Is this a current diagnosis for this admission?: Yes (12) Dementia Qualifiers: Dementia type: unspecified type Dementia behavioral disturbance: without behavioral disturbance Qualified Code(s): F03.90 - Unspecified dementia without behavioral disturbance Is this a current diagnosis for this admission?: Yes (13) Anemia of chronic disease Is this a current diagnosis for this admission?: Yes - Time Time Spent with patient: 25-34 minutes - Plan Summary Plan Summary: Discontinue elavil, IV antibiotics. Decrease PPI dose. Check stool for c dificille toxin. Begin flagyl and bacid. Re-check LFTs. Resume gentle IVF.
[2016-12-04] MEDS ORDERED: LACTOBACILLUS ACIDOPHILUS 250 MG TAB PO ONE (12:00)
[2016-12-04] MEDS ORDERED: LANSOPRAZOLE 30 MG TAB.RAP.DR PO ONE (12:15)
[2016-12-04] MEDS: GLIPIZIDE 5 MG TABLET PO SCH ×2 (12:53→17:15)
[2016-12-04] MEDS: METRONIDAZOLE 500 MG TABLET PO SCH ×2 (14:40→21:28)
[2016-12-04] MEDS: LACTOBACILLUS ACIDOPHILUS 250 MG TAB PO SCH (17:16)
[2016-12-05] MEDS: LANSOPRAZOLE 30 MG TAB.RAP.DR PO SCH (05:16)
[2016-12-05] MEDS: METRONIDAZOLE 500 MG TABLET PO SCH ×2 (05:17→13:48)
[2016-12-05] MEDS: ENOXAPARIN SODIUM INJ 40 MG/0.4 ML DISP.SYRIN SUBCUT SCH (07:59)
[2016-12-05] MEDS: DOCUSATE SODIUM 100 MG CAPSULE PO SCH (09:21)
[2016-12-05] MEDS: LACTOBACILLUS ACIDOPHILUS 250 MG TAB PO SCH (09:26)
[2016-12-05] MEDS: ASPIRIN 81 MG TABLET, CHEWABLE PO SCH (09:26)
[2016-12-05] MEDS ORDERED: METOPROLOL TARTRATE 25 MG TABLET PO SCH ×2 (10:00)
[2016-12-05] MEDS: GLIPIZIDE 5 MG TABLET PO SCH (12:06)
[2016-12-05 14:32] VITALS: BP 100/64
--- NOTE | 2016-12-05 14:42 | PDOC DISCHARGE SUMMARY ---
General - Admit/Disc Date/PCP Admission Date/Primary Care Provider: 12/01/16 08:20 Discharge Date: 12/05/16 - Discharge Diagnosis (1) SIRS (systemic inflammatory response syndrome) Is this a current diagnosis for this admission?: Yes (2) UTI (urinary tract infection) Is this a current diagnosis for this admission?: Yes (3) Hypotension Is this a current diagnosis for this admission?: Yes (4) Hypokalemia Is this a current diagnosis for this admission?: Yes (5) Hiatal hernia Is this a current diagnosis for this admission?: Yes (6) Abnormal liver function test Is this a current diagnosis for this admission?: Yes (7) Diabetes mellitus Is this a current diagnosis for this admission?: Yes (8) Hypertension Is this a current diagnosis for this admission?: Yes (9) Hyperlipidemia Is this a current diagnosis for this admission?: Yes (10) Chronic back pain Is this a current diagnosis for this admission?: Yes (11) Chronically on opiate therapy Is this a current diagnosis for this admission?: Yes (12) Dementia Is this a current diagnosis for this admission?: Yes (13) Anemia of chronic disease Is this a current diagnosis for this admission?: Yes - Additional Information Discharge Diet: Cardiac - low fat, low salt, Diabetic - no concentrated sweets Discharge Activity: Activity As Tolerated, Balance Activity w/Rest, Slowly Increase Activity Home Medications: Amitriptyline HCl [Elavil 25 mg Tablet] 25 mg PO BID 12/01/16 Ammonium Lactate [Skin Treatment] 1 applic TP BID 12/01/16 Aspirin [Aspirin 81 mg Chewable Tablet] 81 mg PO DAILY 12/01/16 Glimepiride [Amaryl] 2 mg PO QAM 12/01/16 Iron,Carbonyl/Ascorbic Acid [Vitron-C Tablet] 1 tab PO DAILY 12/01/16 Liraglutide [Victoza 2-Kevin] 1.8 ml INJ DAILY 12/01/16 Morphine Sulfate [Morphine Ir 15 mg Tablet] 15 mg PO BIDP PRN 12/01/16 Multivitamin [Multivitamins] 1 each PO DAILY 12/01/16 Pentosan Polysulfate Sodium [Elmiron 100 mg Capsule] 100 mg PO BID 12/01/16 Ubidecarenone/Vit E Acetate [Co Q-10 100 mg Softgel] 1 each PO DAILY 12/01/16 Acidoph/L.bulg/Bif.b/S.thermop [Bacid Caplet] 1 tab PO BID #28 tablet 12/04/16 Metronidazole [Flagyl 500 mg Tablet] 500 mg PO TID #42 tablet 12/04/16 Pantoprazole Sodium [Protonix] 40 mg PO BID #60 tablet. 12/04/16 Metoprolol Tartrate [Lopressor 25 mg Tablet] 25 mg PO Q12 #60 tablet 12/05/16 Additional Information: Repeat liver function tests as outpatient with primary care physician in one to 2 weeks. History of Present Illness Patient complains of: Confusion History of Present Illness: NEENA SANTANA is a 81 year old female, with history of hypertension and chronic back pain on chronic opiate use, as well as on diuretics presents to the hospital because of confusion. Patient does not remember what happened. She reported that she fell twice 2 days ago. She doesn't feel well overall in general. She has underlying baseline dementia and a very poor historian. She was brought to the hospital as she was falling out of the chair, the ambulance was called, she was found to be hypoxic with O2 saturation in the 80s, patient was placed on oxygen and was brought to the emergency room. CT of the abdomen and pelvis did not reveal any acute abnormality but large hiatal hernia. CTA of the chest did not reveal an infiltrate or pulmonary embolism. She was noted to be hypotensive with a blood pressure systolic in the 60s to 80s. 2 L of normal saline bolus was given and intravenous antibiotics started for abnormal urinalysis suggestive of UTI. Patient was then referred for admission. Patient denies any dysuria urgency or frequency, chills or fever, chest congestion or sinus congestion, nor any sore throat, no diarrhea as well reported. Hospital Course Hospital Course: The patient was admitted to [facility]. A diagnosis of possible sepsis was made secondary to urinary tract infection. Broad-spectrum antibiotics was begun. The patient significantly improved after 24-48 hours. Patient was given intravenous fluids as well. However her cultures remained negative. Urine culture grew mixed dominique. She has a significant hiatal hernia noted on CT scan. There was no infiltrate noted nor pulmonary embolism. Chest x-ray did not reveal any pneumonia as well. Hypotension may well be related to medication as well as the hiatal hernia. Diuretics was therefore discontinued. Patient's course was noted for diarrhea that resolved after treatment with Flagyl and lactobacillus. As her blood cultures and urine cultures remain negative, broad-spectrum antibiotic was discontinued. Physical therapy was instituted. Patient recommended to have physical therapy but she refused. Her family tried to encourage her as well however she continues to refuse and just wants to go home. Family therefore agreed to bring her back home with home health. Course was also noted for tachycardia. She was begun on metoprolol and this has improved. Her TSH was low but her free T4 is normal. She has been wanting to go home for the past 48 hours. Eventually her heart rate was controlled and her diarrhea resolved. Her liver functions were monitored and was fluctuating and the elevation may be related to medication which her cholesterol medication advice to be discontinued. The rest of the hospital stays unremarkable. Physical Exam Vital Signs: Temp Pulse Resp BP Pulse Ox 99.1 F 91 20 100/64 96 12/05/16 14:26 12/05/16 14:26 12/05/16 14:26 12/05/16 14:26 12/05/16 14:26 Intake & Output 12/04/16 12/05/16 12/06/16 06:59 06:59 06:59 Intake Total 2075 Balance 2075 2083 355 Weight 87.6 kg 86.3 kg General appearance: PRESENT: no acute distress, cooperative, obese Head exam: PRESENT: normocephalic Eye exam: PRESENT: EOMI Mouth exam: PRESENT: moist, neck supple Neck exam: ABSENT: JVD Respiratory exam: PRESENT: clear to auscultation marcella. ABSENT: rhonchi, wheezes Cardiovascular exam: PRESENT: RRR. ABSENT: gallop GI/Abdominal exam: PRESENT: hyperactive bowel sounds, soft. ABSENT: distended Extremities exam: PRESENT: other - Trace edema Neurological exam: PRESENT: alert, awake, oriented to situation Skin exam: PRESENT: dry, warm. ABSENT: cyanosis Results Laboratory Results: 12/02/16 04:13 12/04/16 03:31 Impressions: KUB X-Ray 12/01/16 00:00 IMPRESSION: NO RADIOGRAPHIC EVIDENCE FOR ACUTE ABDOMINAL DISEASE. LARGE AMOUNT OF STOOL CONSISTENT WITH CONSTIPATION. Chest X-Ray 12/01/16 03:04 IMPRESSION: NO ACUTE CARDIOPULMONARY PROCESS. NO SIGNIFICANT CHANGE FROM PRIOR STUDY. Abdomen/Pelvis CT 12/01/16 05:15 IMPRESSION: 1. CHRONIC ATROPHY OF THE RIGHT KIDNEY. 2. LARGE HIATAL HERNIA WITH INTRATHORACIC STOMACH. 3. 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 4. THE ABOVE FINDINGS ARE STABLE COMPARED TO THE PRIOR STUDY. NO ACUTE FINDINGS. Chest/Abdomen CTA 12/01/16 05:15 IMPRESSION: NORMAL CTA OF THE CHEST. NO PULMONARY EMBOLI. LARGE HIATAL HERNIA WITH INTRATHORACIC STOMACH. Qualifiers PATEINT BEING DISCHARGED WITH ANY OF THE FOLLOWING DIAGNOSIS?: No Plan Discharge Plan: Follow-up with primary care physician in one week. Time Spent: Less than 30 Minutes
--- NOTE | 2016-12-18 15:06 | Progress Note ---
Provider Note Provider Note: This is in conjunction with the query. The patient has systemic inflammatory response syndrome clinical course rather than sepsis.
== END 2016-12-05 16:21 | disposition home or self-care (01) | DRG 690 ==
LOC: ER 01:57 → EH 08:03 → OBSVTOIN 08:20 → 3N 12-02 02:05
DX: N30.00 Acute cystitis without hematuria (principal); I95.9 Hypotension, unspecified; E87.6 Hypokalemia; K44.9 Diaphragmatic hernia without obstruction or gangrene; E11.8 Type 2 diabetes mellitus with unspecified complications; I10 Essential (primary) hypertension; E78.5 Hyperlipidemia, unspecified; G89.29 Other chronic pain; M54.9 Dorsalgia, unspecified; F03.90 Unspecified dementia, unspecified severity, without behavioral disturbance, psychotic disturbance, mood disturbance, and anxiety; D63.8 Anemia in other chronic diseases classified elsewhere; N26.1 Atrophy of kidney (terminal); K21.9 Gastro-esophageal reflux disease without esophagitis; F32.9 Major depressive disorder, single episode, unspecified; Z79.891 Long term (current) use of opiate analgesic; Z79.899 Other long term (current) drug therapy; Z90.49 Acquired absence of other specified parts of digestive tract; Z90.710 Acquired absence of both cervix and uterus; Z79.82 Long term (current) use of aspirin; Z82.49 Family history of ischemic heart disease and other diseases of the circulatory system
CPT/HCPCS: 36415; 71010; 71275; 74000; 74177; 80048; 80053; 80076; 81001; 82550; 82553; 82962; 84439; 84443; 84484; 85025; 87040; 87086; 93005; 93010; 96361; 96365; 96366; 96367; 96368; 96372; 99285; G8978-GP; G8979-GP; J0744; J1650; J1815; J3480; J3490; J7030